=== PATIENT | male | born 1965 | race Two or more races ===

== ENCOUNTER 2018-04-28 07:56 | Emergency (ER) | payer OTHER ==
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
[2018-04-28 08:21] VITALS: PULSE 63; BMI 41.0
[2018-04-28 11:10] VITALS: BP 112/67; TEMP 98
--- NOTE | 2018-04-28 13:51 | EKG ---
Test Reason : Blood Pressure : / mmHG Vent. Rate : 063 BPM Atrial Rate : 063 BPM P-R Int : 184 ms QRS Dur : 106 ms QT Int : 424 ms P-R-T Axes : 050 -01 008 degrees QTc Int : 433 ms NORMAL SINUS RHYTHM POSSIBLE LEFT ATRIAL ENLARGEMENT LEFT VENTRICULAR HYPERTROPHY ABNORMAL ECG NO PREVIOUS ECGS AVAILABLE Confirmed by FACUNDO RICHARDSON, MELONY ([id number]) on 04/28/2018 1:50:41 PM Referred By: Confirmed By:MELONY LOREDO MD
== END 2018-04-28 11:28 | disposition home or self-care (01) ==
LOC: JER 07:56
DX: R14.2 Eructation (principal); F41.0 Panic disorder [episodic paroxysmal anxiety]; K27.9 Peptic ulcer, site unspecified, unspecified as acute or chronic, without hemorrhage or perforation
CPT/HCPCS: 93005; 93010; 99282-25